=== PATIENT | female | born 1985 | race Caucasian/White ===

== ENCOUNTER 2016-10-16 12:17 | Emergency (ER) | payer MEDICAID ==
[2016-10-16 12:33] VITALS: TEMP 98.1; O2SAT 100
[2016-10-16] MEDS ORDERED: Sodium Chloride 0.9% 1,000 ML IV ONE (13:24)
[2016-10-16] MEDS ORDERED: Sodium Chloride 0.9% 1,000 ML ONE (14:09)
--- NOTE | 2016-10-16 14:14 | C.PDOC ---
History Of Present Illness 31-year-old female, presents to the emergency department with complaints of body aches, chills, nasal congestion and mild cough that started two days ago. Patient notes that symptoms continued yesterday, associated with cramping lower- abdominal pain and non-bloody loose stools, resulting in her coming to the ED for evaluation. Patient notes a Hx of ovarian cysts, but has never had this pain associated with it. She denies nausea/vomiting or symptoms. Her last menstrual period was 10/05 and prior to that was 09/01. Time Seen by Provider: 10/16/16 13:17 Chief Complaint (Nursing): GI Problem History Per: Patient History/Exam Limitations: no limitations Past Medical History Reviewed: Historical Data, Nursing Documentation, Vital Signs Vital Signs: Last Vital Signs Temp 98.1 F 10/16/16 13:03 Pulse 69 10/16/16 13:03 Resp 18 10/16/16 13:03 BP 130/94 H 10/16/16 13:03 Pulse Ox 100 10/16/16 14:15 - Medical History PMH: Migraine Family History: States: No Known Family Hx - Social History Hx Tobacco Use: No Hx Alcohol Use: No Hx Substance Use: No - Immunization History Hx Tetanus Toxoid Vaccination: Yes Hx Influenza Vaccination: Yes Hx Pneumococcal Vaccination: No Review Of Systems Except As Marked, All Systems Reviewed And Found Negative. Constitutional: Positive for: Malaise. Negative for: Fever, Chills ENT: Positive for: Throat Pain Cardiovascular: Negative for: Chest Pain, Palpitations Respiratory: Positive for: Cough. Negative for: Sputum Gastrointestinal: Positive for: Abdominal Pain, Diarrhea Genitourinary: Negative for: Dysuria, Frequency Musculoskeletal: Negative for: Back Pain Neurological: Negative for: Weakness, Numbness, Headache, Dizziness Physical Exam - Physical Exam Appears: Non-toxic, No Acute Distress Skin: Normal Color, Warm, Dry, No Rash Head: Atraumatic, Normacephalic Eye(s): bilateral: Normal Inspection, PERRL, EOMI Nose: Normal Throat: Normal Neck: Normal Cardiovascular: Rhythm Regular Respiratory: Normal Breath Sounds Gastrointestinal/Abdominal: Normal Exam Back: Normal Inspection Extremity: Normal ROM ED Course And Treatment - Laboratory Results Result Diagrams: 10/16/16 14:24 10/16/16 14:24 Lab Interpretation: Abnormal Interpretation Of Abnormal: BHCG 04977.00 O2 Sat by Pulse Oximetry: 100 Pulse Ox Interpretation: Normal - CT Scan/US Pelvic ultrasound Other Rad Studies (CT/US): Read By Radiologist, Radiology Report Reviewed CT/US Interpretation: Accession No. : [id number]. Patient Name / ID : MARCELA AMEZQUITA / [id number]. Exam Date : 10/16/2016 15:41:33 ( Approved ). Study Comment : Sex / Age : F / 31Y. Creator : Burke Henao MD. Dictator : Burke Henao MD. Folder Machine : Program/Music Director : Burke Henao MD. Approver2 : Report Date : 10/16/2016 16:43:36. My Comment : . HISTORY: with abdominal pain. COMPARISON: Pelvic ultrasound 12/02/2015. LMP 09/01/2016. TECHNIQUE: Grayscale and color Doppler sonographic images were obtained of the pelvis utilizing transabdominal and transvaginal approach. FINDINGS: UTERUS: Anteverted and normal in size measuring 9.9 x 5.2 x 4.7 cm. Intrauterine gestational sac noted measuring 1.3 cm corresponding to gestational age of 5 weeks 4 days. No pole or heartbeat identified. CERVIX: Closed and measures 4.1 cm. RIGHT OVARY: Measures 3.5 x 2.6 x 3.4 cm. Sonographically unremarkable. Normal flow. LEFT OVARY: Measures 4.9 x 3.9 x 5.3 cm. Normal flow. Echogenic mass noted within the left ovary measuring 3.5 x 3.2 x 4.2 cm that may represent a dermoid. FREE FLUID: Small amount of pelvic free fluid noted, likely physiologic. OTHER FINDINGS: None. IMPRESSION : Intrauterine gestational sac measuring 1.3 cm and corresponding to a gestational age of 5 weeks 4 days. No pole or heartbeat identified. Findings may be due to too early to detect.Ectopic cannot be excluded in the setting of a positive test . Recommend followup with serial beta HCG levels and pelvic ultrasound. Left ovarian echogenic 4.2 cm mass, increased in size since prior exam where it measured 3.1 cm. Findings may represent a dermoid. Recommend followup pelvic ultrasound or MRI if indicated. Reevaluation Time: 17:08 Reassessment Condition: Improved Disposition Counseled Patient/Family Regarding: Studies Performed, Diagnosis, Need For Followup - Disposition Referrals: Serafin Boyd [Non-Staff] - Disposition: HOME/ ROUTINE Disposition Time: 17:09 Condition: STABLE Additional Instructions: Follow up with Dr Boyd in 2 days for repeat BHCG leves and ultrasound. Return to the ED for any increase in pain or development of vaginal bleeding. Take Tylenol for any pain and Guaifenisen for congestion if needed. Instructions: Threatened Miscarriage (ED), Upper Respiratory Infection (ED) - Clinical Impression Clinical Impression: Threatened in early , URI (upper respiratory infection) - Scribe Statement The provider has reviewed the documentation as recorded by the Danyel Martinez All medical record entries made by the Scribmicki were at my direction and personally dictated by me. I have reviewed the chart and agree that the record accurately reflects my personal performance of the history, physical exam, medical decision making, and the department course for this patient. I have also personally directed, reviewed, and agree with the discharge instructions and disposition.
[2016-10-16 14:30] LABS: BASO # 0.1 K/uL (0.0-0.2); EOS # 0.1 K/uL (0.0-0.7); EOS % 2.2 % (0.0-4.0); HEMATOCRIT 41.1 % (34.0-47.0); LYMPH # 1.6 K/uL (1.0-4.3); LYMPH % 26.3 % (20.0-40.0); MEAN CELL VOLUME 95.2 fL (81.0-99.0); MEAN CORPUSCULAR HEMOGLOBIN 31.5 pg (27.0-31.0); MEAN CORPUSCULAR HGB CONC 33.1 g/dL (33.0-37.0); MEAN PLATELET VOLUME 8.6 fL (7.2-11.7); MONO # 0.6 K/uL (0.0-0.8); MONO % 9.8 % (0.0-10.0); NRBC % 0.1 % (0.0-2.0); RED CELL DISTRIBUTION WIDTH 13.7 % (11.5-14.5); WHITE BLOOD COUNT 5.9 K/uL (4.8-10.8)
[2016-10-16 14:36] LABS: RBC URINE 3 /hpf (0-3); URINE BILIRUBIN NEGATIVE (NEGATIVE); URINE BLOOD 1+ (NEGATIVE); URINE COLOR Yellow (YELLOW); URINE GLUCOSE (UA) NORMAL (Normal); URINE KETONE TRACE mg/dL (NEGATIVE); URINE LEUKOCYTE ESTERASE NEG Leu/uL (Negative); URINE PROTEIN NEGATIVE (NEGATIVE); URINE UROBILINOGEN NORMAL mg/dL (0.2-1.0); WBC URINE 1 /hpf (0-5)
[2016-10-16 14:38] LABS: CHLORIDE 100 mmol/L (98-107); POTASSIUM 3.9 mmol/L (3.6-5.2); SODIUM 137 mmol/L (132-148)
[2016-10-16 14:40] LABS: AST/SGOT 22 U/L (14-36); BILIRUBIN,TOTAL 0.8 mg/dL (0.2-1.3); CARBON DIOXIDE 22 mmol/L (22-30); GFR AFRICAN-AMERICAN > 60
[2016-10-16 14:41] LABS: ALB/GLOB RATIO 1.3 (1.0-2.1); ALKALINE PHOSPHATASE 70 U/L (38-126); ALT/SGPT 18 U/L (9-52); BLOOD UREA NITROGEN 11 mg/dL (7-17); CALCIUM 9.1 mg/dl (8.6-10.4); GLUCOSE,RANDOM 87 mg/dL (65-105); TOTAL PROTEIN 8.2 g/dL (6.3-8.3)
--- NOTE | 2016-10-16 16:45 | US ---
HISTORY: with abdominal pain COMPARISON: Pelvic ultrasound 12/02/2015. LMP 09/01/2016 TECHNIQUE: Grayscale and color Doppler sonographic images were obtained of the pelvis utilizing transabdominal and transvaginal approach. FINDINGS: UTERUS: Anteverted and normal in size measuring 9.9 x 5.2 x 4.7 cm. Intrauterine gestational sac noted measuring 1.3 cm corresponding to gestational age of 5 weeks 4 days. No pole or heartbeat identified. CERVIX: Closed and measures 4.1 cm. RIGHT OVARY: Measures 3.5 x 2.6 x 3.4 cm. Sonographically unremarkable. Normal flow. LEFT OVARY: Measures 4.9 x 3.9 x 5.3 cm. Normal flow. Echogenic mass noted within the left ovary measuring 3.5 x 3.2 x 4.2 cm that may represent a dermoid. FREE FLUID: Small amount of pelvic free fluid noted, likely physiologic. OTHER FINDINGS: None. IMPRESSION: Intrauterine gestational sac measuring 1.3 cm and corresponding to a gestational age of 5 weeks 4 days. No pole or heartbeat identified. Findings may be due to too early to detect.Ectopic cannot be excluded in the setting of a positive test . Recommend followup with serial beta HCG levels and pelvic ultrasound. Left ovarian echogenic 4.2 cm mass, increased in size since prior exam where it measured 3.1 cm. Findings may represent a dermoid. Recommend followup pelvic ultrasound or MRI if indicated.
[2016-10-16 17:22] VITALS: BP 108/68; PULSE 78; RESP 14
== END 2016-10-16 17:34 | disposition home or self-care (01) ==
LOC: C.ER 12:17
DX: O20.0 Threatened abortion (principal); Z3A.01 Less than 8 weeks gestation of pregnancy; J06.9 Acute upper respiratory infection, unspecified
CPT/HCPCS: 76805; 76817; 80053; 81001; 83690; 84702; 84703; 85025; 96360; 96372; 99285; J0500; J7040

== ENCOUNTER 2018-07-13 15:41 | Emergency (ER) | payer MEDICAID ==
[2018-07-13 15:59] VITALS: BP 138/86; PULSE 79; RESP 15; TEMP 97.9; O2SAT 99
--- NOTE | 2018-07-13 16:11 | C.PDOC ---
History Of Present Illness 33 y/o female presents to the ER complaining of rash to the chest,abdomen, and back which has been present for the past 2 days. Patient states that the rash began as a lesion on her lower back. Patient thought that it was ringworm. She notes that she has multiple lesions over her chest.,abdomen, and upper back. She states that the lesions are scaled, itchy, and red. No recent travel or any sick contacts. NKA. Denies having fever, chills, SOB, cough, throat/lip/tongue/mouth swelling, nausea, vomiting, abdominal pain, or any other associated symptoms. Time Seen by Provider: 07/13/18 15:54 Chief Complaint (Nursing): Abnormal Skin Integrity History Per: Patient History/Exam Limitations: no limitations Onset/Duration Of Symptoms: Days Current Symptoms Are (Timing): Still Present Severity: Moderate Past Medical History Reviewed: Historical Data, Nursing Documentation, Vital Signs Vital Signs: Last Vital Signs Temp 97.9 F 07/13/18 15:51 Pulse 79 07/13/18 15:51 Resp 15 07/13/18 15:51 BP 138/86 07/13/18 15:51 Pulse Ox 99 07/13/18 15:51 - Medical History PMH: Migraine Other Surgeries: Hx of surgeries Family History: States: No Known Family Hx - Social History Hx Tobacco Use: No Hx Alcohol Use: No Hx Substance Use: No - Immunization History Hx Tetanus Toxoid Vaccination: Yes Hx Influenza Vaccination: Yes Hx Pneumococcal Vaccination: No Review Of Systems Except As Marked, All Systems Reviewed And Found Negative. Constitutional: Negative for: Fever, Chills Eyes: Negative for: Vision Change, Redness ENT: Negative for: Mouth Swelling, Throat Swelling Cardiovascular: Negative for: Chest Pain, Palpitations, Light Headedness Respiratory: Negative for: Cough, Shortness of Breath Gastrointestinal: Negative for: Nausea, Vomiting, Abdominal Pain, Diarrhea Genitourinary: Negative for: Dysuria, Frequency Musculoskeletal: Negative for: Neck Pain, Back Pain Skin: Positive for: Rash Neurological: Negative for: Weakness, Numbness, Headache, Dizziness Physical Exam - Physical Exam Appears: Well, Non-toxic, No Acute Distress Skin: Warm, Dry, Rash (scattered erythematous scaled circular lesions over chest,lower back, and abdomen, some with surrounding erythema) Head: Atraumatic, Normacephalic Eye(s): bilateral: Normal Inspection, PERRL, EOMI Ear(s): Bilateral: Normal Nose: Normal Oral Mucosa: Moist Tongue: Normal Appearing, No Swelling Lips: Normal Appearing, No Swelling Throat: Normal, No Erythema, No Exudate Neck: Normal ROM, Supple Lymphatic: No Adenopathy Chest: Symmetrical Cardiovascular: Rhythm Regular Respiratory: Normal Breath Sounds, No Rales, No Rhonchi, No Wheezing Gastrointestinal/Abdominal: Normal Exam, Soft, No Tenderness, No Guarding, No Rebound Back: No Vertebral Tenderness, No Muscle Spasm, No Paraspinal Tenderness, Other (1.5cm diameter rounded erythematous lesion with raised edges and a central clearing, suspicious for tinea corporis) Extremity: Normal ROM, Capillary Refill (<2s) Pulses: Left Radial: Normal, Right Radial: Normal Neurological/Psych: Oriented x3, Normal Speech, Normal Motor, Normal Sensation Gait: Steady ED Course And Treatment O2 Sat by Pulse Oximetry: 99 Medical Decision Making Medical Decision Making: Lesions suspicious for fungal infection with superimposed bacterial infection s econdary to pruritus. Will prescribe antifungals and antibiotic. Advised dermatologic and primary followup within 2 days. Diagnostic testing results and plan of care discussed with patient. Strict in structions given regarding prescription use, importance of followup, and signs/symptoms to return to ER including fever, chills, SOB, worsening rash, or any other new/worsening symptoms. Pt verbalized understanding of discussion. Patient is A&Ox3, ambulating with steady gait, with vital signs stable for discharge. Disposition - Disposition Referrals: Sandra Sue MD [Non-Staff] - Disposition: HOME/ ROUTINE Disposition Time: 15:59 Condition: STABLE Additional Instructions: Use ketoconazole cream twice daily for 4 weeks, or 1 weeks after lesions heal Take Keflex every 6 hours for 1 week Use selenium sulfide shampoo once daily in shower, leave on 5-10minutes then rinse Followup with dermatology within 2 days Followup with primary doctor within 2 days Return to ER with any new/worsening symptoms Prescriptions: Cephalexin [Keflex] 500 mg PO QID 7 Days #28 capsule Ketoconazole 2% Cr [Nizoral] 1 applic TOP BID #2 tube Selenium Sulfide 1 appl TD DAILY #1 shampoo Instructions: Cellulitis and Erysipelas (Skin Infections), Ringworm (DC), Fungal Skin Rash (DC) Forms: General Discharge Instructions, [facility] (Ugandan), Work Excuse - Clinical Impression Clinical Impression: Tinea corporis, Cellulitis - PA / [employer] / Resident Statement MD/DO has reviewed & agrees with the documentation as recorded. - Scribe Statement The provider has reviewed the documentation as recorded by the Scribe Rosalee Patrick Provider Attestation All medical record entries made by the Scribe were at my direction and personally dictated by me. I have reviewed the chart and agree that the record accurately reflects my personal performance of the history, physical exam, medical decision making, and the department course for this patient. I have also personally directed, reviewed, and agree with the discharge instructions and disposition.
== END 2018-07-13 16:21 | disposition home or self-care (01) ==
LOC: C.ER 15:41
DX: B35.4 Tinea corporis (principal); L03.818 Cellulitis of other sites